=== PATIENT | male | born 1995 ===

== ENCOUNTER 2016-10-23 17:38 | Emergency (ER) | payer BC ==
[2016-10-23 17:48] VITALS: BP 127/65
--- NOTE | 2016-10-23 17:58 | ED ---
Laceration/Wound HPI - HPI Summary HPI Summary: 21 YEAR OLD PRESENTS WITH RIGHT LITTLE FINGER LACERATION SECONDARY TO GLASS. - History of Current Complaint Stated Complaint: FINGER LACERATION Time Seen by Provider: 10/23/16 17:55 - Allergy/Home Medications Allergies/Adverse Reactions: Allergies Allergy/AdvReac Type Severity Reaction Status Date / Time Cefprozil [From Cefzil] Allergy Swelling Verified 10/23/16 17:48 PMH/Surg Hx/FS Hx/Imm Hx Endocrine/Hematology History: Denies: Hx Diabetes, Hx Thyroid Disease Cardiovascular History: Denies: Hx Hypertension Respiratory History: Denies: Hx Asthma, Hx Chronic Obstructive Pulmonary Disease (COPD) GI History: Denies: Hx Ulcer Infectious Disease History: No Infectious Disease History: Denies: Hx Hepatitis, Hx Human Immunodeficiency Virus (HIV), Traveled Outside the [place] in Last 30 Days - Social History Alcohol Use: Occasionally Substance Use Type: Reports: None Smoking Status (MU): Never Smoked Tobacco Review of Systems Positive: Other - RIGHT LITTLE FINGER LACERATION All Other Systems Reviewed And Are Negative: Yes Physical Exam Triage Information Reviewed: Yes Vital Signs On Initial Exam: Initial Vitals Temp Pulse Resp BP Pulse Ox 36.7 C 67 14 127/65 98 10/23/16 17:42 10/23/16 17:42 10/23/16 17:42 10/23/16 17:42 10/23/16 17:42 Skin: Positive: Tender, Erythema @ - RIGHT LITTLE FINGER LACERATION Procedures - Laceration/Wound Repair 1 Location: upper extremity - RIGHT LITTLE FINGER Diagnostics - Vital Signs Vital Signs Temp Pulse Resp BP Pulse Ox 10/23/16 17:42 36.7 C 67 14 127/65 98 - Laboratory Lab Statement: Any lab studies that have been ordered have been reviewed, and results considered in the medical decision making process. Laceration Repair Course/Dx - Clinical Impression Provider Diagnoses: Laceration of right little finger w/o foreign body w/o damage to nail Discharge - Discharge Plan Condition: Stable Disposition: HOME Prescriptions: Sulfamethox/Trimethoprim DS* [Bactrim DS 800/160 TAB*] 1 tab PO BID #20 tab Patient Education Materials: Laceration (ED) Referrals: No Primary Care Phys,NOPCP [Primary Care Provider] -
[2016-10-23] MEDS ORDERED: Lidocaine 1% MPF* 2 ML VIAL INJ ONE (18:02)
--- NOTE | 2016-10-23 18:22 | RAD ---
HISTORY: Laceration, rule out foreign body COMPARISONS: None VIEWS: 3, Frontal, lateral, and oblique views of the fifth digit of the right hand FINDINGS: BONE DENSITY: Normal. BONES: There is no displaced fracture. JOINTS: There is no arthropathy. ALIGNMENT: There is no dislocation. SOFT TISSUES: There is soft tissue irregularity consistent with the history of laceration. OTHER FINDINGS: There is no radiopaque foreign body IMPRESSION: NO ACUTE OSSEOUS INJURY. NO RADIOPAQUE FOREIGN BODY. IF SYMPTOMS PERSIST, RECOMMEND REPEAT IMAGING.
[2016-10-23] MEDS ORDERED: Tetan/Diph/Pertus SYR(Tdap)* 0.5 ML SYR(BOOSTRIX) use SYR IM ONE (19:00)
[2016-10-23] MEDS ORDERED: Sulfamethox/Trimethoprim DS 800/160* TAB PO ONE (19:26)
== END 2016-10-23 19:35 | disposition home or self-care (01) ==
LOC: UCEAST 17:38
DX: S61.211A Laceration without foreign body of left index finger without damage to nail, initial encounter (principal); W25.XXXA Contact with sharp glass, initial encounter
CPT/HCPCS: 12001; 73140; 90471; 90715; 99202; A9270-GY; G0463

== ENCOUNTER 2016-10-26 18:06 | Emergency (ER) | payer BC ==
[2016-10-26 19:37] VITALS: BP 108/62
--- NOTE | 2016-10-26 19:58 | UC ---
HPI Wound/Suture Re-check - HPI Summary HPI Summary: Was seen here for 2 lacerations to R 5th finger on 10/23/16, sustained when glass broke while he was washing it. Here for recheck; was not told when to have sutures out. Has been wearing a splint, no concerns. - History Of Current Complaint Chief Complaint: Jatinder Stated Complaint: WOUND RECHECK Time Seen by Provider: 10/26/16 19:32 Hx Obtained From: Patient Onset/Duration: Sudden Onset Severity: Moderate - Allergies/Home Medications Allergies/Adverse Reactions: Allergies Allergy/AdvReac Type Severity Reaction Status Date / Time Cefprozil [From Cefzil] Allergy Swelling Verified 10/26/16 19:37 PMH/Surg Hx/FS Hx/Imm Hx Previously Healthy: Yes - Surgical History Surgical History: None - Family History Known Family History: Negative: Blood Disorder - Social History Alcohol Use: Rare Substance Use Type: None Smoking Status (MU): Never Smoked Tobacco - Immunization History Most Recent Tetanus Shot: 10/23/16 Review of Systems Constitutional: Negative Skin: Other - cuts to R 5th finger Eyes: Negative ENT: Negative Respiratory: Negative Cardiovascular: Negative Gastrointestinal: Negative Genitourinary: Negative Motor: Negative Neurovascular: Negative Musculoskeletal: Negative Neurological: Negative Psychological: Negative All Other Systems Reviewed And Are Negative: Yes Physical Exam Triage Information Reviewed: Yes Appearance: Well-Appearing, No Pain Distress, Well-Nourished Vital Signs: Initial Vital Signs Temp 98.3 F 10/26/16 19:33 Pulse 75 10/26/16 19:33 Resp 16 10/26/16 19:33 BP 108/62 10/26/16 19:33 Pulse Ox 95 10/26/16 19:33 Vital Signs Reviewed: Yes Eye Exam: Normal Eyes: Positive: Conjunctiva Clear ENT Exam: Normal ENT: Positive: Normal ENT inspection, Hearing grossly normal, Pharynx normal, TMs normal Dental Exam: Normal Neck exam: Normal Respiratory Exam: Normal Respiratory: Positive: Chest non-tender, Lungs clear, Normal breath sounds, No respiratory distress, No accessory muscle use Cardiovascular Exam: Normal Cardiovascular: Positive: RRR, No Murmur Musculoskeletal Exam: Normal Musculoskeletal: Positive: ROM Intact Neurological Exam: Normal Neurological: Positive: Alert Psychological Exam: Normal Skin Exam: Other - wound edges approximated, no erythema or streaking Course/Dx - Differential Dx - Laceration/Wound Provider Diagnoses: R 5th finger healing lacerations Discharge - Discharge Plan Condition: Stable Disposition: HOME Patient Education Materials: Care For Your Stitches (ED) Referrals: No Primary Care Phys,NOPCP [Primary Care Provider] - Additional Instructions: Your wounds appear to be healing well. Continue to wear the splint; brief handwashing and showers are permitted, though you should avoid swimming until the sutures are out. Return here in 5-6 days for suture removal. Come back sooner if you suspect a problem.
== END 2016-10-26 20:00 | disposition home or self-care (01) ==
LOC: UCEAST 18:06
DX: Z48.817 Encounter for surgical aftercare following surgery on the skin and subcutaneous tissue (principal)
CPT/HCPCS: 99211; G0463

== ENCOUNTER → 2016-10-31 17:18 | Emergency (ER) | payer BC ==
[2016-10-31 18:27] VITALS: BP 111/59
--- NOTE | 2016-10-31 19:27 | UC ---
Skin Complaint HPI - HPI Summary HPI Summary: 21 y/o male present to the urgent care for suture removal on his RT # 5 finger. Pt reports he had them placed on 10/23/2016 here at the urgent care. Pt states wound healing well and no signs of infection. Pt denies fever, SOB, chest pain, N/V/D. No other complains. - History of Current Complaint Chief Complaint: UCSkin Time Seen by Provider: 10/31/16 19:12 Stated Complaint: STITCHES REMOVED Hx Obtained From: Patient Onset/Duration: Sudden Onset, Lasting Days, Still Present Skin Exposure Onset/Duration: Days Ago Timing: Constant Onset Severity: Mild Current Severity: Mild Pain Intensity: 0 Pain Scale Used: 0-10 Numeric Location: Hand (Right) - RT #5 finger with sutures Aggravating: Nothing Alleviating: Nothing Associated Signs & Symptoms: Positive: Negative - Allergy/Home Medications Allergies/Adverse Reactions: Allergies Allergy/AdvReac Type Severity Reaction Status Date / Time Cefprozil [From Cefzil] Allergy Swelling Verified 10/26/16 19:37 Home Medications: Home Medications NK [No Home Medications Reported] 10/31/16 [History Confirmed 10/31/16] Review of Systems Constitutional: Negative Skin: Other - #5 phalanx with sutures Eyes: Negative ENT: Negative Respiratory: Negative Cardiovascular: Negative Gastrointestinal: Negative Genitourinary: Negative Motor: Negative Neurovascular: Negative Musculoskeletal: Negative Neurological: Negative Psychological: Negative All Other Systems Reviewed And Are Negative: Yes PMH/Surg Hx/FS Hx/Imm Hx Previously Healthy: Yes - Surgical History Surgical History: None - Family History Known Family History: Negative: Blood Disorder - Social History Occupation: Employed Full-time Lives: With Family Alcohol Use: Rare Substance Use Type: None Smoking Status (MU): Never Smoked Tobacco - Immunization History Most Recent Tetanus Shot: 10/23/16 Physical Exam Triage Information Reviewed: Yes Appearance: Well-Appearing, No Pain Distress, Well-Nourished, Thin Vital Signs: Initial Vital Signs Temp 98.7 F 10/31/16 18:25 Pulse 69 10/31/16 18:25 Resp 18 10/31/16 18:25 BP 111/59 10/31/16 18:25 Pulse Ox 100 10/31/16 18:25 Vital Signs Reviewed: Yes Eye Exam: Normal Eyes: Positive: Conjunctiva Clear - PERRLA, EOMI, ENT Exam: Normal ENT: Positive: Normal ENT inspection, Hearing grossly normal, Pharynx normal, TMs normal Dental Exam: Normal Neck exam: Normal Neck: Positive: Supple, Nontender, No Lymphadenopathy Respiratory Exam: Normal Respiratory: Positive: Chest non-tender, Lungs clear, Normal breath sounds Cardiovascular Exam: Normal Cardiovascular: Positive: RRR, No Murmur, Pulses Normal, Brisk Capillary Refill Abdominal Exam: Normal Abdomen Description: Positive: Nontender, No Organomegaly, Soft. Negative: CVA Tenderness (R), CVA Tenderness (L) Bowel Sounds: Positive: Present Musculoskeletal Exam: Normal Musculoskeletal: Positive: Strength Intact, ROM Intact, No Edema Neurological Exam: Normal Psychological Exam: Normal Skin: Positive: Other - RT #5 phalanx with laceration with 8 stiches between the MCPJ and the PIJ is a semilunar shape, no signs of infection, healing well, FROM, neurovascular intact. Course/Dx - Course Course Of Treatment: 21 y/o male present to the urgent care for suture removal on his RT # 5 finger. Pt reports he had them placed on 10/23/2016 here at the urgent care. Pt states wound healing well and no signs of infection. Pt denies fever, SOB, chest pain, N/V/D. Hx obtained. PE abnormal fingins:RT #5 phalanx with laceration with 8 stiches between the MCPJ and the PIJ is a semilunar shape , no signs of infection, healing well, FROM, neurovascular intact. 8 STitches removed w/o any difficulty. Pt tolerated well procedure and neurovascular intact after procedure. Bacitracin applied and non adherent dressing applied. Pt advised to continue placing topical ABX prn and keep wound clean and dry. And if any signs of infection develops to return to the clinc for further treatment. Pt. understood and agreed and left the clinic ambulating. - Differential Diagnoses - Skin Complaint Differential Diagnoses: Cellulitis, Other - suture removal - Diagnoses Provider Diagnoses: 1-Suture removal of RT #5 phalanx laceration Discharge - Discharge Plan Condition: Stable Disposition: HOME Patient Education Materials: Stitches Removal (ED) Referrals: [facility] [place] [facility]FERR[facility] [Outside] No Primary Care Phys,NOPCP [Primary Care Provider] - Additional Instructions: PLease keep wound dry and clean. Continue applying Bacitracin ointment BID x 3 days. If signs of infection develops return ti the urgent care or f/u with a PCP form the [facility] referral center for further evaluation and treatment.
== END | disposition home or self-care (01) ==
LOC: UCEAST 17:18
DX: Z48.02 Encounter for removal of sutures (principal)